=== PATIENT | female | born 1965 ===

== ENCOUNTER 2023-11-09 06:00 | Day surgery (SDC) | payer OTHER ==
[~2023-11-09 06:00] MED LIST: AMLODIPINE-OLM1 EAC2; AVAPRO300 MG PO
[2023-11-09] MEDS ORDERED: POVIDONE-IODINE 118 ML BOTT TOP ONE ×2 (08:10→09:30)
[2023-11-09] MEDS ORDERED: IBU600 MG PO (09:47)
== END 2023-11-09 12:35 | disposition home or self-care (01) ==
LOC: CIR.AMB 06:00
PROVIDERS: ATTEND Obstetrics & Gynecology Gynecology
DX: N84.0 Polyp of corpus uteri (principal); N72 Inflammatory disease of cervix uteri; N88.2 Stricture and stenosis of cervix uteri

== ENCOUNTER 2024-12-27 12:30 | Inpatient (IN) | payer OTHER ==
[~2024-12-27] VITALS: Ht 160 cm; Wt 122.5 kg
[~2024-12-27 12:30] MED LIST changes: +IBU600 MG PO
[2024-12-27 14:17] VITALS: BP 97/60
[2024-12-27 14:20] VITALS: BP 133/83
[2025-01-02] MEDS ORDERED: POVIDONE-IODINE 118 ML BOTT TOP ONE (08:27)
[2025-01-02] MEDS ORDERED: CEFAZOLIN SODIUM 1,000 MG VIAL ONE ×2 (08:27→12:21)
[2025-01-02] MEDS ORDERED: ONDANSETRON HCL 2 MG/ML VIAL IV PRN (11:00)
[2025-01-02] MEDS ORDERED: RINGERS SOLUTION,LACTATED 1,000 ML IV SCH (11:00)
[2025-01-02] MEDS ORDERED: MORPHINE SULFATE 4 MG,MORPHINE SULFATE 2 MG IV PRN (11:00)
[2025-01-02] MEDS ORDERED: MORPHINE SULFATE 4 MG/ML VIAL IV PRN (11:00)
[2025-01-02] MEDS ORDERED: MORPHINE SULFATE 4 MG/ML VIAL IV ONE ×2 (11:25→11:55)
[2025-01-02] MEDS ORDERED: CEFAZOLIN SODIUM 1,000 MG VIAL IV SCH (12:00)
[2025-01-02 14:10] VITALS: BP 97/60
[2025-01-02 15:13] LABS: BASO % 0.2 % (0.1-1.2); HEMATOCRIT 41.6 % (34.1-44.9); HEMOGLOBIN 14.1 g/dL (11.2-15.7); LYMPH # 0.93 (1.18-3.74); LYMPH % 5.4 % (19.3-53.1); MEAN CORPUSCULAR HEMOGLOBIN 29.7 pg (25.6-32.2); MONO # 0.96 (0.24-0.82); MONO % 5.6 % (4.7-12.5); NEUT # 15.08 (1.56-6.13); NEUT % 88.4 % (34.0-71.1); PLATELET COUNT 258 K/uL (163-369); RED BLOOD COUNT 4.74 M/uL (3.93-5.22); RED CELL DISTRIBUTION WIDTH 13.3 % (11.6-14.4)
[2025-01-02 16:43] VITALS: BP 113/71
[2025-01-03 01:05] VITALS: BP 118/70
[2025-01-03] MEDS ORDERED: SIMETHICONE 125 MG CAPSULE PO SCH (06:45)
[2025-01-03 08:00] VITALS: BP 109/66
[2025-01-03] MEDS ORDERED: IBUprofen 800 MG TABLET PO SCH (08:00)
[2025-01-03] MEDS ORDERED: AMLODIPINE BESYLATE 5 MG TABLET PO SCH (09:00)
[2025-01-03] MEDS ORDERED: ENOXAPARIN SODIUM 40 MG/0.4 ML SYRINGE SUBCUTANEO SCH (09:00)
[2025-01-03] MEDS ORDERED: GABAPENTIN 300 MG CAPSULE PO SCH (09:00)
[2025-01-03] MEDS ORDERED: IRBESARTAN 300 MG TABLET PO SCH (09:00)
[2025-01-03 16:42] VITALS: BP 127/80
[2025-01-04 00:14] VITALS: BP 121/75
[2025-01-04] MEDS ORDERED: GABAPENTIN300 MG PO (06:31)
[2025-01-04] MEDS ORDERED: IBUPROFEN800 MG PO (06:32)
[2025-01-04 08:02] VITALS: BP 123/79
== END 2025-01-04 10:29 | disposition home or self-care (01) | DRG 741 ==
LOC: SURH 01-02 07:00 → OB/GYN 01-02 07:14 → O/R 01-02 07:14 → OB/GYN 01-02 11:46 → SURH 01-02 12:30 → OB/GYN 01-02 13:21
PROVIDERS: ADMIT Obstetrics & Gynecology Gynecology; ATTEND Obstetrics & Gynecology Gynecology
PROC: 0UT70ZZ Resection of Bilateral Fallopian Tubes, Open Approach (ICD-10-PCS; 2025-01-02)
PROC: 0UT20ZZ Resection of Bilateral Ovaries, Open Approach (ICD-10-PCS; 2025-01-02)
PROC: 0USG0ZZ Reposition Vagina, Open Approach (ICD-10-PCS; 2025-01-02)
PROC: 0UT90ZZ Resection of Uterus, Open Approach (ICD-10-PCS; principal; 2025-01-02 07:00)
DX: C54.1 Malignant neoplasm of endometrium (principal); N84.0 Polyp of corpus uteri